=== PATIENT | male | born 1995 | race Caucasian/White ===

== ENCOUNTER 2024-08-27 07:12 | Emergency (ER) | payer MEDICAID ==
[~2024-08-27] VITALS: Ht 172.7 cm; Wt 81.6 kg
[2024-08-27 07:24] VITALS: TEMP 98.6; O2SAT 99
[2024-08-27] MEDS: OXYCODONE HCL/ACETAMINOPHEN 5/325MG TABLET PO ONE (09:11)
[2024-08-27] MEDS ORDERED: KETAMINE HCL 50 MG/ML 10ML IM ONE (09:45)
[2024-08-27] MEDS: ONDANSETRON HCL 4MG/2ML INJ IV ONE ×2 (10:18→10:35)
[2024-08-27] MEDS: KETAMINE HCL 50 MG/ML 10ML IV ONE (10:34)
[2024-08-27] MEDS: PROPOFOL 200MG/20ML VIAL IV PRN (10:35)
[2024-08-27] MEDS ORDERED: IBUP-2028 PO (11:22)
[2024-08-27] MEDS: KETOROLAC 30MG/ML VIAL IV ONE (12:24)
[2024-08-27] MEDS ORDERED: T3 PO (12:54)
[2024-08-27 12:57] VITALS: BP 129/80; PULSE 90; RESP 15; O2SAT 95
== END 2024-08-27 12:55 | disposition home or self-care (01) ==
LOC: ER 07:26
DX: S53.104A Unspecified dislocation of right ulnohumeral joint, initial encounter (principal); Z79.1 Long term (current) use of non-steroidal anti-inflammatories (NSAID); V00.131A Fall from skateboard, initial encounter; Y93.89 Activity, other specified; Y92.89 Other specified places as the place of occurrence of the external cause; Y99.8 Other external cause status
CPT/HCPCS: 73060; 73070; 73080; 73090; 24600; 99152; 99285; J1885; J2405; J2704; Z7610 ×3; A4565; A4606; A4663; J3490

== ENCOUNTER 2025-05-02 23:02 | Emergency (ER) | payer MEDICAID, OTHER ==
[~2025-05-02] VITALS: Ht 170.2 cm; Wt 93.0 kg
[~2025-05-02 23:02] MED LIST: IBUP-2028 PO; T3 PO
[2025-05-02 23:21] VITALS: O2SAT 100
[2025-05-02] MEDS: KETOROLAC 30MG/ML VIAL IM ONE (23:57)
[2025-05-03] MEDS ORDERED: METH-653 MT (01:19)
[2025-05-03] MEDS ORDERED: NAPR-1176 MT (01:19)
[2025-05-03] MEDS: MORPHINE SULFATE 4 MG/ML INJ (FOR IV/IM USE) IV ONE (01:35)
[2025-05-03] MEDS: ONDANSETRON HCL 4MG/2ML INJ IV ONE (01:35)
[2025-05-03 02:32] VITALS: BP 150/121; PULSE 90; RESP 13; TEMP 36.7; O2SAT 97
== END 2025-05-03 02:42 | disposition home or self-care (01) ==
LOC: ER 23:02
DX: S46.912A Strain of unspecified muscle, fascia and tendon at shoulder and upper arm level, left arm, initial encounter (principal); M25.512 Pain in left shoulder; Z79.1 Long term (current) use of non-steroidal anti-inflammatories (NSAID); Z90.49 Acquired absence of other specified parts of digestive tract; X58.XXXA Exposure to other specified factors, initial encounter; Y93.89 Activity, other specified; Y92.89 Other specified places as the place of occurrence of the external cause; Y99.8 Other external cause status
CPT/HCPCS: 73030; 96372; 99285; 96374; 96375; J1885; J2405; J2270; Z7610

== ENCOUNTER 2025-05-03 05:57 | Emergency (ER) | payer OTHER ==
[~2025-05-03] VITALS: Ht 167.6 cm; Wt 93.0 kg
[~2025-05-03 05:57] MED LIST changes: +METH-653 MT; +NAPR-1176 MT
[2025-05-03] MEDS: KETOROLAC 15MG/ML VIAL IV ONE (06:37)
[2025-05-03] MEDS: MORPHINE SULFATE 4 MG/ML INJ (FOR IV/IM USE) IV ONE (06:37)
[2025-05-03 07:55] VITALS: O2SAT 99
[2025-05-03] MEDS: PROPOFOL 200MG/20ML VIAL IV ONE ×3 (09:01→09:40)
[2025-05-03] MEDS: KETAMINE HCL 50 MG/ML 10ML IV ONE ×2 (09:01→09:40)
[2025-05-03 09:25] VITALS: BP 148/101; PULSE 92; RESP 15; TEMP 36.8; O2SAT 99
[2025-05-03] MEDS: ONDANSETRON HCL 4MG TABLET PO ONE (09:31)
== END 2025-05-03 09:48 | disposition home or self-care (01) ==
LOC: ER 05:57
DX: S43.025A Posterior dislocation of left humerus, initial encounter (principal); F10.90 Alcohol use, unspecified, uncomplicated; F12.90 Cannabis use, unspecified, uncomplicated; Z79.1 Long term (current) use of non-steroidal anti-inflammatories (NSAID); Z79.899 Other long term (current) drug therapy; Z90.49 Acquired absence of other specified parts of digestive tract; X58.XXXA Exposure to other specified factors, initial encounter; Y93.89 Activity, other specified; Y92.89 Other specified places as the place of occurrence of the external cause; Y99.8 Other external cause status; Y90.9 Presence of alcohol in blood, level not specified
CPT/HCPCS: 73030; 93005; 23650; 96374; 96375; 99152; 99285; Q0162; J3490; J1885; J2704; J2270; Z7610 ×2